=== PATIENT | male | born 1935 | race Caucasian/White ===

== ENCOUNTER 2019-01-27 21:43 | Emergency (ER) | payer SELFPAY ==
[~2019-01-27] VITALS: Ht 154.9 cm; Wt 73.8 kg
[2019-01-27 22:54] VITALS: Ht 154.9 cm; Wt 73.8 kg
[2019-01-28 00:30] VITALS: BP 156/72; PULSE 76; RESP 20
== END 2019-01-28 00:30 | disposition left against medical advice (07) ==
LOC: E/R 21:43
DX: Z53.21 Procedure and treatment not carried out due to patient leaving prior to being seen by health care provider (principal)